=== PATIENT | male | born 1975 | race Caucasian/White ===

== ENCOUNTER 2017-06-23 15:24 | Emergency (ER) | payer OTHER ==
[2017-06-23 15:25] VITALS: O2SAT 97
[2017-06-23] MEDS ORDERED: LIDOCAINE 2% W/ EPI MPF 20 ML SOL INFIL ONE (15:44)
[2017-06-23] MEDS ORDERED: LIDOCAINE 2% W/ EPI MPF 20 ML SOL ONE (15:44)
[2017-06-23 16:12] VITALS: BP 161/90; PULSE 88; RESP 18; TEMP 97.7
== END 2017-06-23 16:15 | disposition home or self-care (01) ==
LOC: ED 15:24
DX: S61.012A Laceration without foreign body of left thumb without damage to nail, initial encounter (principal); W26.0XXA Contact with knife, initial encounter
CPT/HCPCS: 99284

== ENCOUNTER 2018-06-19 17:06 | Emergency (ER) | payer OTHER ==
[2018-06-19 17:22] VITALS: TEMP 97.6
[2018-06-19] MEDS ORDERED: ASPIRIN 81 MG CHEWABLE CTB ONE (17:37)
[2018-06-19] MEDS ORDERED: ASPIRIN 81 MG CHEWABLE CTB PO ONE (17:40)
[2018-06-19 17:54] LABS: BASOPHILS % (AUTO) 2 % (0-3); EOSINOPHILS % (AUTO) 2 % (0-9); HEMATOCRIT 49 % (39-53); HEMOGLOBIN 16.2 gm/dl (13.5-17.7); LYMPHOCYTES % (AUTO) 37.3 % (10-50); MEAN CORPUSCULAR HEMOGLOBIN 31.8 pg (27.0-32.0); MEAN CORPUSCULAR VOLUME 96 fL (80-100); MONOCYTES % (AUTO) 9.2 % (0-12); NEUTROPHILS % (AUTO) 50.3 % (37-80)
[2018-06-19 17:56] LABS: INR 0.94 (0.86-1.12)
[2018-06-19 18:07] LABS: ALBUMIN 3.6 gm/dl (3.4-5.0); ALKALINE PHOSPHATASE 88 IU/L (46-116); ALT 47 IU/L (14-63); BILIRUBIN,TOTAL 0.3 mg/dl (0.2-1.0); BLOOD UREA NITROGEN 16 mg/dl (7-18); CALCIUM 8.4 mg/dl (8.5-10.1); CARBON DIOXIDE 28.1 mEq/L (21-32); CHLORIDE 103 mMol/L (98-107); CREATININE 1.11 mg/dl (0.80-1.30); GLUCOSE 111 mg/dl (74-106); POTASSIUM 3.9 mMol/L (3.5-5.1); SODIUM 139 mMol/L (136-145); TOTAL PROTEIN 6.9 gm/dl (6.4-8.2); TROP I < 0.017 ng/ml (0.000-0.056)
[2018-06-19 18:15] LABS: DDIMER QUANTITATIVE < 100 ng/ml (<100-400)
[2018-06-19 18:41] VITALS: BP 150/93; PULSE 57; RESP 18; O2SAT 95
[2018-06-19 18:43] LABS: AMYLASE 37 IU/L (25-115)
[2018-06-19 19:11] LABS: AST 20 IU/L (15-37)
== END 2018-06-19 18:55 | disposition home or self-care (01) ==
LOC: ED 17:06
DX: R09.1 Pleurisy (principal)
CPT/HCPCS: 36415; 71046; 80053; 82150; 84484; 85025; 85378; 85610; 93005; 99283; 99284

== ENCOUNTER 2018-12-14 07:19 | Day surgery (SDC) | payer OTHER ==
[2018-12-14] MEDS ORDERED: BUPIVACAINE/EPI 0.5% 10 ML SOL INFIL ONE (07:43)
[2018-12-14] MEDS ORDERED: ONDANSETRON HCL 4 MG/2 ML SOL ONE (07:44)
[2018-12-14] MEDS ORDERED: PROPOFOL 500 MG/50 ML EMU IV ONE (07:44)
[2018-12-14] MEDS ORDERED: DEXAMETHASONE 20 MG/5 ML (4 MG/ML SOL) ONE (07:44)
[2018-12-14] MEDS ORDERED: METOCLOPRAMIDE HYDROCHLORIDE 5 MG/ML SOL ONE (07:44)
[2018-12-14] MEDS ORDERED: FENTANYL 100MCG/2ML SOL ONE (07:44)
[2018-12-14] MEDS ORDERED: MIDAZOLAM 2 MG/2 ML SOL ONE (07:46)
[2018-12-14] MEDS ORDERED: CEFAZOLIN SODIUM 1 GM PDS ONE (08:38)
[2018-12-14] MEDS ORDERED: KETOROLAC TROMETHAMINE 30 MG/ML SOL ONE (09:16)
[2018-12-14 09:49] VITALS: RESP 16
[2018-12-14] MEDS ORDERED: APAP/HYDROCODONE 1 EACH TABLET ONE (09:53)
[2018-12-14 10:04] VITALS: BP 141/80; PULSE 70; TEMP 97.4; O2SAT 93
== END 2018-12-14 10:52 | disposition home or self-care (01) | DRG 395 ==
LOC: SURG 07:19
PROVIDERS: ATTEND Surgery
DX: K42.9 Umbilical hernia without obstruction or gangrene (principal)
CPT/HCPCS: J0330; J0690; J1100; J1885; J2250; J2405; J2765; J3010; A6402; A9270-GY; C1781; J2001; J2704